=== PATIENT | female | born 1955 | race Caucasian/White ===

== ENCOUNTER → 2019-07-03 | Outpatient (CLI) | payer MEDICARE, OTHER ==
[~2019-07-03] MED LIST: ACETAMINOPHEN-1 EAC1 PO; ACETAMINOPHEN325 MG PO; AFRIN15 ML NS; ALBUTEROL2.5 MG/0.5 INH; AMITRIPTYLINE H10 M3 PO; B12INJ SUBLING; CALCIUM WITH V1 EAC1 PO; CEFDINIR300 MG PO; CHOLESTYRAMINE P4 GM PO; CUVITRU SUBQ; DIFLUCAN200 MG PO; FLONASE 0.05%50 MCG NASAL; GLIPIZIDE5 MG PO; GLUCOTROL5 MG PO; IPRATROPIU0.2 MG/1 M IH; LEVOTHYROXINE0.2 M1 PO; LEVOXYL175 MCG PO; LEVOXYL75 MCG PO; NASONEX17 GM NASAL; NITROGLYCERIN0.4 MG SUBLING; PREDNISONE 10 M10 MG PO; PROTONIX40 M1 PO; VENTOLIN HFA 1818 GM INH; VITAMIN D 5050000 I1 PO; VITAMINS; ZYRTEC10 M5 PO
== END ==
LOC: M.CT 08:04 → M.RAD 09:00
DX: M81.8 Other osteoporosis without current pathological fracture (principal); R10.2 Pelvic and perineal pain; K42.9 Umbilical hernia without obstruction or gangrene; K43.9 Ventral hernia without obstruction or gangrene; Z78.0 Asymptomatic menopausal state

== ENCOUNTER 2019-08-07 17:56 | Inpatient (IN) | payer MEDICARE, OTHER ==
[~2019-08-07] VITALS: Ht 154.9 cm; Wt 103.3 kg
[~2019-08-07 17:56] MED LIST changes: -ACETAMINOPHEN325 MG PO; -CEFDINIR300 MG PO; -CUVITRU SUBQ; -GLIPIZIDE5 MG PO; -LEVOXYL175 MCG PO; -LEVOXYL75 MCG PO; -ZYRTEC10 M5 PO
[2019-08-07 18:01] VITALS: BP 154/69
[2019-08-07 18:24] LABS: ABSOLUTE BASOPHILS 0.1 thou/uL (0.0-0.2); ABSOLUTE EOSINOPHILS 0.1 thou/uL (0.0-0.7); ABSOLUTE LYMPHOCYTES 2.1 thou/uL (0.8-5.3); ABSOLUTE MONOCYTES 0.3 thou/uL (0.0-1.2); ABSOLUTE NEUTROPHILS 5.1 thou/uL (1.6-8.1); BASOPHILS 1.3 %; EOSINOPHILS 0.7 %; HEMATOCRIT 39.4 % (37.0-47.0); HEMOGLOBIN 13.1 gm/dL (12.0-15.0); LYMPHOCYTES 26.9 %; MCHC 33.3 g/dL (28.0-37.0); MCV 80.9 fL (80.0-100.0); MONOCYTES 4.4 %; MPV 8.9 fl. (7.2-11.1); NUCLEATED RBCS 0 /100WBC; PLATELET COUNT* 262 thou/uL (150-400); POLYS 66.7 %; RBC 4.87 mil/uL (4.20-5.00); RDW-CV 14.4 % (10.5-14.5); WBC 7.7 thou/uL (4.0-11.0)
[2019-08-07 18:29] LABS: CALCIUM 8.8 mg/dL (8.5-10.1); CREATININE 0.8 mg/dL (0.6-1.3)
[2019-08-07 18:30] LABS: POTASSIUM 4.3 mmol/L (3.5-5.1)
[2019-08-07 18:32] LABS: APTT 24.7 Seconds (25.0-31.3)
[2019-08-07 18:43] LABS: ALBUMIN 3.5 g/dL (3.4-5.0); TOTAL PROTEIN 7.6 g/dL (6.4-8.2)
[2019-08-07 21:04] VITALS: BP 133/67
[2019-08-07 21:09] VITALS: BP 134/83
[2019-08-07] MEDS ORDERED: LEVOXYL75 MCG PO (22:11)
[2019-08-07] MEDS ORDERED: LEVOXYL175 MCG PO (22:11)
[2019-08-07] MEDS ORDERED: ACETAMINOPHEN325 MG PO (22:13)
[2019-08-07] MEDS ORDERED: GLIPIZIDE5 MG PO (22:19)
[2019-08-07] MEDS ORDERED: ZYRTEC10 M5 PO (22:21)
[2019-08-07] MEDS ORDERED: CUVITRU SUBQ (22:24)
[2019-08-08] VITALS (7 sets, daily range): BP systolic 110–149; BP diastolic 50–70
[2019-08-08] MEDS ORDERED: CEFDINIR300 MG PO (02:24)
--- NOTE | 2019-08-08 04:31 | NUR ---
PATIENT PROGRESSING TOWARDS GOALS: SAFETY MAINTAINED WITH STANDBY ASSISTANCE. PATIENT GETS DIZZY OCCASIONALLY ON AMBULATION. PATIENT REQUIRES REMINDERS TO UTILIZE CALL LIGHT FOR ASSISTANCE. PATIENT DESCRIBES HERSELF "STUBBORN" AND STATES "I CAN GET UP BY MYSELF". REMINDED PATIENT FREQUENTLY ON FALL PRECAUTIONS AND SAFETY. CALL LIGHT WITHIN REACH
[2019-08-08 09:14] LABS: URINE BILIRUBIN NEGATIVE (Negative); URINE BLOOD NEGATIVE (Negative); URINE CLARITY CLEAR; URINE COLOR YELLOW; URINE GLUCOSE-RANDOM NEGATIVE (Negative); URINE KETONES NEGATIVE (Negative); URINE LEUKOCYTES-REFLEX NEGATIVE (Negative); URINE NITRITE-REFLEX NEGATIVE (Negative); URINE PROTEIN NEGATIVE (Negative); URINE SPECIFIC GRAVITY >= 1.030 (1.005-1.030); URINE UROBILINOGEN 0.2 E.U./dl (0.2-1.0)
--- NOTE | 2019-08-08 09:49 | EKG ---
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: : 1955 Requested By: Alhaji Fleming Order Number: [id number] MD: Santiago Markham Measurements Intervals [place] Rate: 54 P: 22 HI: 172 QRS: -44 QRSD: 112 T: 87 QT: 438 QTc: 416 Interpretive Statements Sinus bradycardia artifact noted Borderline IVCD with LAD Abnormal R-wave progression, late transition consider Inferior infarct, old Compared to ECG 11/15/2016 15:02:54 T-wave abnormality no longer present Electronically Signed On 08-08-2019 9:48:48 EXPORT PACKER by Santiago Markham [email or web address] <ELECTRONICALLY SIGNED> By: Santiago Markham MD, FACC 08/08/19 0948 1805 1805 Santiago Markham MD, [facility] /EPI
--- NOTE | 2019-08-08 11:18 | NUR ---
Pt is A&O. Resides at home alone. Independent. Pt has a bipap, home o2 and neb through [facility]. Hx of HH. No hx of SNF. Goal si home at vt. No needs anticipated.
--- NOTE | 2019-08-08 13:01 | NUR ---
Nutrition: Pt admitted with dizziness. H/o asthma, DM II. Consult for diet instruction. Pt stated she takes glipizide prn and sometimes bottoms out with it. She stated her last A1c was 6.7% Albumin 3.5, no recent A1c recorded. She said her DM got better after her bariatric surgery. She has also had diverticulitis and sigmoid colon removal; she doesn't eat seeds. Wt: 229#. She denied need for diet instruction today. She seems knowledgable about her diet/nutrition/RX. Mild risk.
[2019-08-09] VITALS: BP 130/61
--- NOTE | 2019-08-09 04:29 | NUR ---
PATIENT PROGRESSING TOWARDS GOALS: SAFETY MAINTAINED. PATIENT VOICES CONCERNS ABOUT LOW HEART RATE. EDUCATED PATIENT ON CARDIOLOGY CONSULT AND REASSURANCE PROVIDED. 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 ALL OTHER VSS ON ROOM AIR AND HOME BIPAP AT HS. HEADACHE WAS NOT RELIEVED WITH TYLENOL, HOWEVER, PATIENT WILLING TO TRY OTHER ALTERNATIVES SUCH DARK/QUIET ENVIRONMENT AND RELAXATION. REFUSING OTHER PAIN MEDICATION. CALL LIGHT WITHIN REACH
[2019-08-09 08:00] VITALS: BP 121/53
[2019-08-09 12:13] VITALS: BP 121/53
--- NOTE | 2019-08-09 12:51 | NUR ---
assumed pt care at 0730, full assesment done as charted. pt a/o x4, anxoius to discharge today. pt reports having a Dr appt set up for today. pt still c/o AHN, denies dizzyness, reports attempting excercises Dr reccomended yesterday and they made her "feel sick". pts Vss, HR in 40's-50's. cardiology S/O. discharge orders received, pt left with all belongings at approx 1240
--- NOTE | 2019-08-10 10:20 | CON ---
[address] [address] CONSULTATION Name: SURINDER PARSON Room: [address] IN M.R.#: [id number] Admission: 08/07/19 Attend Phys: Ayah Mcconnell Discharge: 08/09/19 Date of : 55 Report #: [id number] THIS REPORT FOR: //name// CC: Hortencia Escoto CARDIOLOGY CONSULTATION HISTORY OF PRESENT ILLNESS: The patient is a 64-year-old single white female who I was asked to see in the hospital today after she was noted to be bradycardic. The patient has an extensive past medical history. She does have a history of morbid obesity, previously weighing 334 pounds and being 5 feet 1 inch tall. She actually had a bariatric surgery in the past in 2012. She is not very active at this time. She actually saw my nurse practitioner, Diane Stark just yesterday. She was seen by my partner, Dr. Godinez last month complaining of fatigue. Dr. Godinez recommended a cardiac workup that included an echocardiogram last month that showed an ejection fraction of 60% with left atrial enlargement. She underwent a nuclear stress test last month, which showed diaphragmatic attenuation and apical thinning, but no significant ischemia, ejection fraction 79%. It was felt her chest pain was noncardiac. The patient was noted to be bradycardic and a Holter monitor was ordered. The patient saw my nurse practitioner yesterday with a lot of complaints. She complained of edema. Recently, she has complained of dizzy and nauseated. She has been short of breath. PAST MEDICAL HISTORY: Otherwise significant for cholecystectomy, cataract extraction, nasal surgery, hernia repair, hypothyroidism, status post ablation, sleep apnea, she is on BiPAP, diabetes, and macular degeneration. MEDICATIONS: Consist of albuterol inhaler, Neurontin, glipizide, Ativan, Synthroid, Nasonex, Protonix, and Zoloft. ALLERGIES: SHE HAS INTOLERANCE TO ACETAMINOPHEN. FAMILY HISTORY: Positive for heart disease. SOCIAL HISTORY: , lives in [place]. She is on disability. No smoking or alcohol abuse. REVIEW OF SYSTEMS: She has had no history of stroke. She has had kidney stone in the past. No cancer. No psychiatric illness. PHYSICAL EXAMINATION: GENERAL: Revealed an obese middle-aged female lying in bed. She appeared in no distress. VITAL SIGNS: Blood pressure 130/70, pulse is 60. [place] [address] CONSULTATION Name: SURINDER PARSON Room: [address]#: [id number] Admission: 08/07/19 Attend Phys: Ayah Mcconnell Discharge: 08/09/19 Date of : 55 Report #: [id number] HEENT: She was anicteric. Conjunctivae pink. Mucous membranes are moist. CHEST: Clear to auscultation. CARDIOVASCULAR: Regular rate and rhythm. ABDOMEN: Obese. EXTREMITIES: Had no pitting edema. Dorsalis pedis pulse 2+ bilaterally. SKIN: Warm and dry. NEUROLOGIC: Nonfocal. RADIOLOGICAL DATA: Her ECG on admission showed sinus bradycardia with no ST or T-wave changes. Her workup in the Emergency Room, she had a chest x-ray that showed normal heart size, clear lung butcher. She had a CT scan of the head done yesterday that showed no acute abnormality. LABORATORY DATA: Her lab work, sodium 138 and potassium 4.3. Troponin 0.06. White blood cell count 7.7 and hemoglobin 13.1. TSH was 0.25. IMPRESSION AND RECOMMENDATIONS: 1. Sinus bradycardia. I would not recommend pacemaker at this time. I would avoid beta-blockers. 2. Hypertension. The patient is not on medications at this time. 3. Asthma. 4. Sleep apnea. 5. Obesity. 6. History of Graves disease with previous ablation. <ELECTRONICALLY SIGNED> By: Santiago Markham MD, FACC 08/10/19 1020 1517 [id number] Markham MD, FACC /nt
== END 2019-08-09 12:40 | disposition home or self-care (01) | DRG 103 ==
LOC: M.ERS 17:56 → M.TBA-ER 18:34 → M.2W 18:34
PROVIDERS: Family Medicine; ADMIT Internal Medicine
PROC: 5A09357 Assistance with Respiratory Ventilation, Less than 24 Consecutive Hours, Continuous Positive Airway Pressure (ICD-10-PCS; principal; 2019-08-08)
DX: G43.909 Migraine, unspecified, not intractable, without status migrainosus (principal); Z68.41 Body mass index [BMI] 40.0-44.9, adult; H81.11 Benign paroxysmal vertigo, right ear; T50.905A Adverse effect of unspecified drugs, medicaments and biological substances, initial encounter; J45.40 Moderate persistent asthma, uncomplicated; E66.01 Morbid (severe) obesity due to excess calories; I25.2 Old myocardial infarction; J45.909 Unspecified asthma, uncomplicated; K21.9 Gastro-esophageal reflux disease without esophagitis; E03.9 Hypothyroidism, unspecified; E11.9 Type 2 diabetes mellitus without complications; G47.33 Obstructive sleep apnea (adult) (pediatric); F07.81 Postconcussional syndrome; Z88.8 Allergy status to other drugs, medicaments and biological substances; Z88.6 Allergy status to analgesic agent; Z88.1 Allergy status to other antibiotic agents; Z91.041 Radiographic dye allergy status; Z90.49 Acquired absence of other specified parts of digestive tract; Z82.49 Family history of ischemic heart disease and other diseases of the circulatory system

== ENCOUNTER → 2020-02-12 | Outpatient (CLI) | payer MEDICARE, OTHER ==
[~2020-02-12] MED LIST changes: +ACETAMINOPHEN325 MG PO; +CEFDINIR300 MG PO; +CUVITRU SUBQ; +GLIPIZIDE5 MG PO; +LEVOXYL175 MCG PO; +LEVOXYL75 MCG PO; +ZYRTEC10 M5 PO
== END ==
LOC: M.RAD 10:00
DX: Z12.31 Encounter for screening mammogram for malignant neoplasm of breast (principal)

== ENCOUNTER → 2020-05-12 | Outpatient (CLI) | payer MEDICARE, OTHER | LOC: M.ULTRA 12:57 | PROVIDERS: ATTEND Registered Nurse Diabetes Educator | DX: M79.605 Pain in left leg (principal); M79.604 Pain in right leg; E11.65 Type 2 diabetes mellitus with hyperglycemia; R20.9 Unspecified disturbances of skin sensation; R53.83 Other fatigue ==

== ENCOUNTER → 2020-10-21 | Outpatient (CLI) | payer MEDICARE, OTHER | LOC: M.ULTRA 10:30 | PROVIDERS: ATTEND Registered Nurse Diabetes Educator | DX: N28.1 Cyst of kidney, acquired (principal) ==

== ENCOUNTER → 2020-11-19 | Outpatient (CLI) | payer MEDICARE, OTHER | LOC: M.RAD 10:33 | PROVIDERS: ATTEND Registered Nurse Diabetes Educator | DX: M41.84 Other forms of scoliosis, thoracic region (principal); Z88.8 Allergy status to other drugs, medicaments and biological substances; W19.XXXA Unspecified fall, initial encounter ==

== ENCOUNTER → 2020-12-04 | Outpatient (CLI) | payer MEDICARE, OTHER | LOC: M.RAD 08:37 | PROVIDERS: ATTEND Registered Nurse Diabetes Educator | DX: M85.811 Other specified disorders of bone density and structure, right shoulder (principal); M19.011 Primary osteoarthritis, right shoulder ==

== ENCOUNTER 2020-12-11 12:12 | Observation (INO) | payer MEDICARE, OTHER ==
[~2020-12-11] VITALS: Ht 154.9 cm; Wt 108.0 kg
[2020-12-11 12:20] VITALS: BP 157/75
[2020-12-11] MEDS ORDERED: SYNTHROID175 MCG PO (12:33)
[2020-12-11] MEDS ORDERED: PREDNISONE 1 MG1 M1 PO (12:33)
[2020-12-11] MEDS ORDERED: PROAIR HFA8.5 GM INH (12:34)
[2020-12-11] MEDS ORDERED: PANTOPRAZOLE (12:34)
[2020-12-11] MEDS ORDERED: IPRATROPIUM (12:35)
[2020-12-11] MEDS ORDERED: ASA81BEC PO (12:35)
[2020-12-11] MEDS ORDERED: NYAMYC15 GM TOP (12:35)
[2020-12-11] MEDS ORDERED: ZYRTEC10 M2 PO (12:35)
[2020-12-11] MEDS ORDERED: OZEMPIC0.25 MG/0. (12:36)
[2020-12-11] MEDS ORDERED: NEBULIZER MISCELL (12:36)
[2020-12-11] MEDS ORDERED: NYSTATIN100000 UNI SW&SWALLOW (12:37)
[2020-12-11] MEDS ORDERED: CUVITRU (12:38)
[2020-12-11] MEDS ORDERED: VITAMIN D250 MCG (12:39)
[2020-12-11] MEDS ORDERED: CALCIUM 600 +1 EAC6 PO (12:40)
[2020-12-11] MEDS ORDERED: VITAMIN B-121000 MC2 (12:40)
[2020-12-11 12:46] LABS: ABSOLUTE EOSINOPHILS 0.1 thou/uL (0.0-0.7); ABSOLUTE LYMPHOCYTES 1.1 thou/uL (0.8-5.3); ABSOLUTE MONOCYTES 0.3 thou/uL (0.0-1.2); ABSOLUTE NEUTROPHILS 6.9 thou/uL (1.6-8.1); BASOPHILS 0.5 %; EOSINOPHILS 0.7 %; LYMPHOCYTES 13.5 %; MCH 25.9 pg (26.0-34.0); MCHC 32.3 g/dL (28.0-37.0); MCV 80.2 fL (80.0-100.0); MONOCYTES 3.9 %; MPV 8.1 fl. (7.2-11.1); NUCLEATED RBCS 0 /100WBC; PLATELET COUNT* 246 thou/uL (150-400); POLYS 81.4 %; RBC 4.61 mil/uL (4.20-5.00); RDW-CV 15.3 % (10.5-14.5); WBC 8.5 thou/uL (4.0-11.0)
[2020-12-11 12:56] LABS: CALCIUM 8.5 mg/dL (8.5-10.1); CREATININE 0.7 mg/dL (0.6-1.3); POTASSIUM 3.9 mmol/L (3.5-5.1)
[2020-12-11 13:00] LABS: ALBUMIN 3.3 g/dL (3.4-5.0); MAGNESIUM 1.9 mg/dL (1.8-2.4); TOTAL BILIRUBIN 1.1 mg/dL (<0.1-1.0)
--- NOTE | 2020-12-11 14:52 | EKG ---
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: DANIEL : 1955 Requested By: Cyrus Carter Order Number: [id number] MD: Santiago Markham Measurements Intervals [place] Rate: 62 P: -13 OR: 154 QRS: -17 QRSD: 120 T: 97 QT: 434 QTc: 441 Interpretive Statements Sinus rhythm Nonspecific intraventricular conduction delay Nonspecific T abnormalities, lateral leads Compared to ECG 08/07/2019 18:05:46 Sinus bradycardia no longer present Myocardial infarct finding no longer present Electronically Signed On 12-11-2020 14:51:54 CDT by Santiago Markham [email or web address] <ELECTRONICALLY SIGNED> By: Santiago Markham MD, [facility] 12/11/20 1451 1217 1217 Santiago Markham MD, [facility] /EPI
[2020-12-11 17:03] VITALS: BP 146/87
[2020-12-11 20:00] VITALS: BP 133/48
[2020-12-12 00:28] VITALS: BP 129/47
[2020-12-12 04:00] VITALS: BP 112/48
[2020-12-12 05:01] LABS: HEMOGLOBIN 10.6 gm/dL (12.0-15.0); MCH 25.9 pg (26.0-34.0); MCHC 32.1 g/dL (28.0-37.0); MCV 80.6 fL (80.0-100.0); RBC 4.09 mil/uL (4.20-5.00); RDW-CV 15.2 % (10.5-14.5); WBC 6.5 thou/uL (4.0-11.0)
[2020-12-12 05:22] LABS: ANION GAP 7 mmol/L (7-16); BUN 13 mg/dL (7-18); CALCIUM 8.8 mg/dL (8.5-10.1); CHLORIDE 108 mmol/L (98-107); CO2 28 mmol/L (21-32); CREATININE 0.7 mg/dL (0.6-1.3); GLUCOSE 133 mg/dL (70-99); MAGNESIUM 2.3 mg/dL (1.8-2.4); POTASSIUM 4.1 mmol/L (3.5-5.1); SODIUM 143 mmol/L (136-145); TROPONIN-I LEVEL <0.06 ng/mL (<0.06)
[2020-12-12 08:02] VITALS: BP 124/52
--- NOTE | 2020-12-12 13:08 | 2DMMODE ---
[place] [address] 2 D/M-MODE ECHOCARDIOGRAM Name: SURINDER PARSON Room: [address] Luigi#: [id number] Admission: 12/11/20 Attend Phys: Jimmy Astorga Discharge: Date of : 55 Date of Service: 12/12/20 1307 Report #: [id number] THIS REPORT FOR: cc: FAM - Family physician unknown FAM - Family physician unknown Santiago Markham MD [facility] ~ APPROVED REPORT Study performed: 12/12/2020 11:25:21 EXAM: Comprehensive 2D, Doppler, and color-flow Echocardiogram Patient Location: In-Patient Room #: [facility] Status: routine BSA: 2.03 HR: 64 bpm BP: 124/52 mmHg Rhythm: NSR Other Information Study Quality: Good Indications Chest Pain 2D Dimensions IVSd: 15.33 (7-11mm) LVOT Diam: 20.35 (18-24mm) LVDd: 48.28 mm PWd: 11.32 (7-11mm) Ascending Ao: 34.17 (22-36mm) LVDs: 26.57 (25-40mm) Aortic Root: 32.47 mm Volumes Left Atrial Volume (Systole) LA ESV Index: 30.50 mL/m2 Aortic Valve AoV Peak Misael.: 1.53 m/s AO Peak Gr.: 9.34 mmHg LVOT Max P.87 mmHg AO Mean Gr.: 5.12 mmHg LVOT Mean P.21 mmHg LVOT Max V: 1.31 m/s AO V2 VTI: 34.42 cm LVOT Mean V: 0.82 m/s LORIN (VTI): 2.95 cm2 LVOT V1 VTI: 31.24 [place] [address] 2 D/M-MODE ECHOCARDIOGRAM Name: SURINDER PARSON Room: [address] M.R.#: [id number] Admission: 12/11/20 Attend Phys: Jimmy Astorga Discharge: Date of : 55 Date of Service: 12/12/20 1307 Report #: [id number] Mitral Valve E/A Ratio: 1.74 MV Decel. Time: 171.97 ms MV E Max Misael.: 1.06 m/s MV PHT: 49.87 ms MVA (PHT): 4.41 cm2 TDI E/Lateral E': 8.15 E/Medial E': 11.78 Medial E' Misael.: 0.09 m/s Lateral E' Misael.: 0.13 m/s Pulmonary Valve PV Peak Misael.: 1.85 m/s PV Peak Gr.: 13.67 mmHg Tricuspid Valve RAP Estimate: 5.00 mmHg TR Peak Gr.: 31.06 mmHg RVSP: 36.00 mmHg PA Pressure: 36.00 mmHg Left Ventricle The left ventricle is normal size. There is normal LV segmental wall motion. Moderate septal hypertrophy is present. Left ventricular systolic function is normal. The left ventricular ejection fraction is within the normal range. LVEF is 60-65%. The left ventricular diastolic function is normal. Right Ventricle The right ventricle is normal size. The right ventricular systolic function is normal. Atria Left atrium is mildly dilated. The right atrium size is normal. Aortic Valve The aortic valve is normal in structure. No aortic regurgitation is present. There is no aortic valvular stenosis. Mitral Valve The mitral valve is normal in structure. Mild mitral annular calcification. Trace mitral regurgitation. No evidence of mitral valve stenosis. Tricuspid Valve The tricuspid valve is normal in structure[place] [address] 2 D/M-MODE ECHOCARDIOGRAM Name: SURINDER PARSON [address] [id number] Admission: 12/11/20 Attend Phys: Jimmy Astorga Discharge: Date of : 55 Date of Service: 12/12/20 1307 Report #: [id number] regurgitation. estimated pa pressure 40 mm Hg Pulmonic Valve The pulmonary valve is normal in structure. There is no pulmonic valvular regurgitation. Great Vessels The aortic root is normal in size. IVC is normal in size and collapses >50% with inspiration. Pericardium There is no pericardial effusion. <Conclusion> Moderate septal hypertrophy is present. LVEF is 60-65%. Left atrium is mildly dilated. <ELECTRONICALLY SIGNED> By: Santiago Markham MD, FACC 12/12/20 1307 1307 1307 Santiago Markham MD, FACC /INF
[2020-12-12 16:53] VITALS: BP 149/69
--- NOTE | 2020-12-12 16:57 | CARDNUC ---
[place] [address] CARDIAC NUCLEAR IMAGING REPORT Name: SURINDER PARSON Room: [address] M.R.#: [id number] Admission: 12/11/20 Attend Phys: Jimmy Astorga Discharge: Date of : 55 Date of Service: 12/12/20 1656 Report #: [id number] THIS REPORT FOR: cc: FAM - Family physician unknown FAM - Family physician unknown Claudio Godinez MD [facility] ~ APPROVED REPORT Imaging Protocol: Stress Tc-99m/Rest Tc-99m 1 day Study performed: 12/11/2020 15:19:00 Indication: Chest pain, Dyspnea Patient Location: In-Patient Room #: 222 Stress Tech: Marlyn Neff Stress Nurse: Ana Lilia Alvarado RN Ht: 5 ft 1 in Wt: 238 lbs BSA: 2.03 m2 BMI: 44.96 Medical History Medical History: Diabetes, Obesity , CAD s/p OK Medications: asa-81, ntg Allergies: multiple Cardiac Risk Factors: Age, DM Exercise History: Sedentary Resting Data Rest SPECT myocardial perfusion imaging was performed in supine position 30 minutes following the intravenous injection of 12.0 mCi of Tc-99m Sestamibi. Time of rest injection: 11:10 The images were gated to evaluate regional wall motion and calculate left ventricular ejection fraction. Administration Route: IV Administration Site: Left AC Pharmacologic Stress Pharmacologic stress test was performed by injecting Regadenoson 0.4 mg IV push over 10-15 seconds immediately followed by the intravenous injection of 34.7 mCi of Tc-99m Sestamibi. Time of stress injection: 12:35 Administration Route: IV Administration Site: [place] [address] CARDIAC NUCLEAR IMAGING REPORT Name: EBSURINDER Merchant Room: [address]#: [id number] Admission: 12/11/20 Attend Phys: Jimmy Astorga Discharge: Date of : 55 Date of Service: 12/12/20 1656 Report #: [id number] Heart Rate at time of stress injection: 99 bpm. Gated Stress SPECT was performed 40 minutes after stress injection. The images were gated to evaluate regional wall motion and calculate left ventricular ejection fraction. Stress Test Details Stress Test: Pharmacologic stress testing performed using 0.4 mg of regadenoson per 5 mL given IV over 10 seconds. Reason for pharmacologic stress test: physical limitation. HR Max Heart Rate (APMHR): 155 bpm Resting HR: 64 bpm Target HR (85% APMHR): 131 bpm Max HR Achieved: 99 bpm % of APMHR: 63 Recovery HR: 82 bpm BP Resting BP: 148/85 mmHg Max BP: 158/85 mmHg Recovery BP: 162/86 mmHg ECG Resting ECG: Sinus Rhythm Stress ECG: Sinus Rhythm ST Change: None Arrhythmia: None Recovery ECG: Sinus Rhythm Recovery ST Change: None Recovery Arrhythmia: None Clinical Reason for Termination: Completed protocol The patient tolerated Lexiscan infusion without significant cardiac symptoms. Nurse Comments pt too unsteady to walk on treadmill Stress ECG Conclusion Baseline twelve-lead EKG shows sinus rhythm with no significant ST segment or T wave abnormalities. EKGs obtained during and post Lexiscan infusion show sinus rhythm with no significant ST segment or T wave abnormalities. There were no stress-induced arrhythmias[place] [address] CARDIAC NUCLEAR IMAGING REPORT Name: SURINDER PARSON Room: [address]#: [id number] Admission: 12/11/20 Attend Phys: Jimmy Astorga Discharge: Date of : 55 Date of Service: 12/12/20 1656 Report #: [id number] Study: Good Artifact: No artifact Study Data At rest, the left ventricular ejection fraction was 81%.. Post stress, the left ventricular ejection was 81%.. TID = 0.99. Perfusion Perfusion studies obtained at rest and post Lexiscan stress show uniform uptake of the radioisotope throughout the myocardium. Nuclear Conclusion ECG Findings: negative for ischemia Clinical Findings: negative for ischemia Nuclear Findings: negative for ischemia Exercise Capacity: not assessed Left Ventricular Function: normal Risk Study: low There were no defects to suggest infarct or ischemia. Left ventricular systolic function is normal on gated studies. This is a low risk study. <Conclusion> Baseline twelve-lead EKG shows sinus rhythm with no significant ST segment or T wave abnormalities. EKGs obtained during and post Lexiscan infusion show sinus rhythm with no significant ST segment or T wave abnormalities. There were no stress-induced arrhythmias. <ELECTRONICALLY SIGNED> By: Claudio Godinez MD, FACC 12/12/20 1656 55 165 Claudio Godinez MD, FACC /INF
--- NOTE | 2020-12-12 17:31 | CON ---
[address] [address] CONSULTATION Name: SURINDER PARSON Room: [address] MAngelitoRAngelito#: [id number] Admission: 12/11/20 Attend Phys: Jimmy Benson, Discharge: Date of : 55 Report #: [id number] THIS REPORT FOR: cc: FAM - Family physician unknown FAM - Family physician unknown ~ Claudio Godinez MD [facility] CARDIOLOGY CONSULTATION INDICATION: Chest pain. HISTORY OF PRESENT ILLNESS: The patient is a 65-year-old white female who presents to the Emergency Room with chest pain for the past 4 days. She states this began after lifting several bags of shopping items up 17 stairs where she lives. She reports shortness of breath and dyspnea, but no diaphoresis. The pain is midsternal in location without specific radiation. Stress testing 3 years ago was unremarkable. History is somewhat vague. She reports many years ago having a heart attack in the 1980s. She reports somewhere the interval cardiac catheterization that was fairly unremarkable. EKG here today shows sinus rhythm without acute ST-segment abnormality. PAST MEDICAL HISTORY: 1. Questionable remote myocardial infarction. 2. Asthma. 3. Type 2 diabetes mellitus. 4. GERD. 5. Immunoglobulin deficiency. PAST SURGICAL HISTORY: History of gastric bypass. ALLERGIES: IODINE, GLYCINE, PHENOBARBITAL, MORPHINE, ACETAMINOPHEN, BELLADONNA, ATROPINE, HYOSCYAMINE, PSEUDOEPHEDRINE, BETADINE, LOVASTATIN, METHIMAZOLE, IGG, PEPCID, SCOPOLAMINE, DEXTROMETHORPHAN, EFFEXOR, METFORMIN, HYDROMORPHONE, DOXYLAMINE, ZILEUTON , LEVAQUIN, LEVALBUTEROL, IGA. HOME MEDICATIONS: Albuterol 2 puffs ____ hours p.r.n., aspirin 81 mg daily, calcium with vitamin D one tablet daily, Zyrtec 10 mg daily, B12 supplement weekly, vitamin D2 50,000 units b.i.d., immunoglobulin weekly, Synthroid 175 mcg daily, nystatin oral suspension swish and swallow q.i.d., nystatin powder topically b.i.d., prednisone 7.5 mg daily, Ozempic 0.25 mg weekly. SOCIAL HISTORY: The patient does not drink alcohol. She does not smoke. FAMILY HISTORY: Noncontributory. REVIEW OF SYSTEMS: Positive for cough, dyspnea, palpitations, heart murmur, [place] [address] CONSULTATION Name: SURINDER PARSON Room: [address]#: [id number] Admission: 12/11/20 Attend Phys: Jimmy Benson, Discharge: Date of : 55 Report #: [id number] chest discomfort. Otherwise, 14-point review of systems unremarkable. PHYSICAL EXAMINATION: VITAL SIGNS: Blood pressure 149/65, pulse 61 and regular. GENERAL: This is an obese white female, in no distress. HEENT: Head is normocephalic, atraumatic. Extraocular muscles intact. Mucous membranes moist. NECK: Shows no jugular venous distention. CHEST: Clear to auscultation. CARDIAC: Reveals regular rhythm with a 1/6 systolic murmur heard at the left upper sternal border without gallop. ABDOMEN: Reveals a protuberant abdomen, soft and nontender. EXTREMITIES: Shows trace ankle edema. SKIN: Dry. LABORATORY DATA: A 12-lead EKG shows sinus rhythm without acute ST or T-wave abnormality. Labs are reviewed. Troponin less than 0.06 on initial evaluation. Follow up troponins pending. IMPRESSION AND RECOMMENDATIONS: 1. Chest pain does not sound typical for acute coronary syndrome. I suspect this is more musculoskeletal. We will arrange for noninvasive stress testing and echocardiogram. 2. Diabetes per hospitalist. 3. Hypertension. Continue home medications. We will make adjustments as needed. <ELECTRONICALLY SIGNED> By: Claudio Godinez MD, FACC 12/12/20 1731 1503 [id number] Godinez MD, FACC /nt
[2020-12-12 18:06] VITALS: BP 149/69
[2020-12-12 18:52] VITALS: BP 149/69
== END 2020-12-12 18:30 | disposition home or self-care (01) ==
LOC: M.ERS 12:12 → M.TBA-ER 13:36 → M.2W 17:13
PROVIDERS: Emergency Medicine Emergency Medical Services; ADMIT Family Medicine; ATTEND Family Medicine
DX: R07.2 Precordial pain (principal); J45.909 Unspecified asthma, uncomplicated; E11.9 Type 2 diabetes mellitus without complications; I25.2 Old myocardial infarction; K21.9 Gastro-esophageal reflux disease without esophagitis; E03.9 Hypothyroidism, unspecified; J37.0 Chronic laryngitis; E66.01 Morbid (severe) obesity due to excess calories; G47.33 Obstructive sleep apnea (adult) (pediatric); J45.40 Moderate persistent asthma, uncomplicated; H26.9 Unspecified cataract; I10 Essential (primary) hypertension; D80.2 Selective deficiency of immunoglobulin A [IgA]; Z90.49 Acquired absence of other specified parts of digestive tract; Z20.822 Contact with and (suspected) exposure to COVID-19

== ENCOUNTER → 2021-01-05 | Outpatient (CLI) | payer MEDICARE, OTHER ==
[~2021-01-05] MED LIST changes: +ASA81BEC PO; +CALCIUM 600 +1 EAC6 PO; +CUVITRU; +IPRATROPIUM; +NEBULIZER MISCELL; +NYAMYC15 GM TOP; +NYSTATIN100000 UNI SW&SWALLOW; +OZEMPIC0.25 MG/0.; +PANTOPRAZOLE; +PREDNISONE 1 MG1 M1 PO; +PROAIR HFA8.5 GM INH; +SYNTHROID175 MCG PO; +VITAMIN B-121000 MC2; +VITAMIN D250 MCG; +ZYRTEC10 M2 PO
== END ==
LOC: M.RAD 08:38
PROVIDERS: ATTEND Registered Nurse Diabetes Educator
DX: M16.11 Unilateral primary osteoarthritis, right hip (principal); G89.29 Other chronic pain

== ENCOUNTER 2021-02-17 13:49 | Emergency (ER) | payer OTHER, MEDICARE ==
[~2021-02-17] VITALS: Ht 154.9 cm; Wt 106.6 kg
[2021-02-17] MEDS ORDERED: GLUCOTROL XL5 MG PO (14:15)
[2021-02-17] MEDS ORDERED: AMOXICILLIN 50500 M1 PO (16:07)
[2021-02-17] MEDS ORDERED: FLEXERIL PO (16:07)
[2021-02-17 16:27] VITALS: BP 133/61
== END 2021-02-17 16:28 | disposition home or self-care (01) ==
LOC: M.ERS 13:49
DX: S16.1XXA Strain of muscle, fascia and tendon at neck level, initial encounter (principal); Z20.822 Contact with and (suspected) exposure to COVID-19; S70.02XA Contusion of left hip, initial encounter; S09.8XXA Other specified injuries of head, initial encounter; J18.9 Pneumonia, unspecified organism; J45.909 Unspecified asthma, uncomplicated; K21.9 Gastro-esophageal reflux disease without esophagitis; G47.30 Sleep apnea, unspecified; E03.9 Hypothyroidism, unspecified; E11.9 Type 2 diabetes mellitus without complications; Z90.49 Acquired absence of other specified parts of digestive tract; Z88.6 Allergy status to analgesic agent; Z88.1 Allergy status to other antibiotic agents; Z88.5 Allergy status to narcotic agent; Z88.8 Allergy status to other drugs, medicaments and biological substances; Z91.041 Radiographic dye allergy status; V89.2XXA Person injured in unspecified motor-vehicle accident, traffic, initial encounter; Y93.89 Activity, other specified; Y92.89 Other specified places as the place of occurrence of the external cause; Y99.8 Other external cause status

== ENCOUNTER 2021-05-19 11:38 | Emergency (ER) | payer MEDICARE, OTHER ==
[~2021-05-19] VITALS: Ht 154.9 cm; Wt 108.9 kg
[~2021-05-19 11:38] MED LIST changes: +AMOXICILLIN 50500 M1 PO; +FLEXERIL PO; +GLUCOTROL XL5 MG PO
[2021-05-19 13:28] LABS: ABSOLUTE EOSINOPHILS 0.1 thou/uL (0.0-0.7); ABSOLUTE LYMPHOCYTES 1.1 thou/uL (0.8-5.3); ABSOLUTE MONOCYTES 0.4 thou/uL (0.0-1.2); ABSOLUTE NEUTROPHILS 7.4 thou/uL (1.6-8.1); BASOPHILS 0.4 %; EOSINOPHILS 0.7 %; HEMATOCRIT 35.7 % (37.0-47.0); HEMOGLOBIN 11.2 gm/dL (12.0-15.0); LYMPHOCYTES 12.7 %; MCH 24.5 pg (26.0-34.0); MCHC 31.4 g/dL (28.0-37.0); MCV 78.1 fL (80.0-100.0); MONOCYTES 4.1 %; NUCLEATED RBCS 0 /100WBC; PLATELET COUNT* 252 thou/uL (150-400); POLYS 82.1 %; RBC 4.57 mil/uL (4.20-5.00); RDW-CV 15.1 % (10.5-14.5)
[2021-05-19 13:39] LABS: CALCIUM 8.2 mg/dL (8.5-10.1); CREATININE 0.7 mg/dL (0.6-1.3); POTASSIUM 4.2 mmol/L (3.5-5.1)
[2021-05-19 13:44] LABS: ALBUMIN 3.3 g/dL (3.4-5.0); TOTAL PROTEIN 6.7 g/dL (6.4-8.2)
[2021-05-19 14:19] VITALS: BP 136/60
--- NOTE | 2021-05-19 15:54 | EKG ---
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 : 1955 Requested By: Alhaji Fleming Order Number: [id number] MD: Monster [address] Measurements Intervals [place] Rate: 55 P: 36 [place]: 170 QRS: 6 QRSD: 115 T: 100 QT: 451 QTc: 432 Interpretive Statements Sinus rhythm Nonspecific intraventricular conduction delay Low voltage, extremity leads Nonspecific T abnormalities, lateral leads Baseline wander in lead(s) II,III,aVF Compared to ECG 12/11/2020 12:17:46 Low QRS voltage now present T-wave abnormality still present Electronically Signed On 05-19-2021 15:53:[address] [email or web address] <ELECTRONICALLY SIGNED> By: [address] MD, [facility] 05/19/[address] MD, [facility] /EPI
== END 2021-05-19 14:20 | disposition home or self-care (01) ==
LOC: M.ERS 11:38
PROVIDERS: Family Medicine
DX: R07.89 Other chest pain (principal); F41.9 Anxiety disorder, unspecified; I25.2 Old myocardial infarction; J45.909 Unspecified asthma, uncomplicated; K21.9 Gastro-esophageal reflux disease without esophagitis; E03.9 Hypothyroidism, unspecified; E11.9 Type 2 diabetes mellitus without complications; Z90.49 Acquired absence of other specified parts of digestive tract; Z79.82 Long term (current) use of aspirin; Z79.51 Long term (current) use of inhaled steroids; Z79.899 Other long term (current) drug therapy; Z88.6 Allergy status to analgesic agent; Z88.3 Allergy status to other anti-infective agents; Z91.041 Radiographic dye allergy status; Z88.5 Allergy status to narcotic agent; Z88.8 Allergy status to other drugs, medicaments and biological substances; Z91.09 Other allergy status, other than to drugs and biological substances

== ENCOUNTER → 2021-05-21 | Outpatient (CLI) | payer MEDICARE, OTHER | LOC: M.RAD 16:45 | PROVIDERS: ATTEND Registered Nurse Diabetes Educator | DX: R05 Cough (principal); R07.9 Chest pain, unspecified ==

== ENCOUNTER → 2021-07-13 | Outpatient (CLI) | payer MEDICARE, OTHER | LOC: M.RAD 12:49 | PROVIDERS: ATTEND Registered Nurse Diabetes Educator | DX: Z12.31 Encounter for screening mammogram for malignant neoplasm of breast (principal); M81.0 Age-related osteoporosis without current pathological fracture; M85.88 Other specified disorders of bone density and structure, other site; Z78.0 Asymptomatic menopausal state ==

== ENCOUNTER → 2021-07-23 | Outpatient (CLI) | payer MEDICARE, OTHER | LOC: M.CT 13:46 | PROVIDERS: ATTEND Registered Nurse Diabetes Educator | DX: K43.9 Ventral hernia without obstruction or gangrene (principal); K57.30 Diverticulosis of large intestine without perforation or abscess without bleeding; N85.8 Other specified noninflammatory disorders of uterus; M47.817 Spondylosis without myelopathy or radiculopathy, lumbosacral region; Z90.49 Acquired absence of other specified parts of digestive tract ==